=== PATIENT | female | born 1985 | race African-American/Black ===

== ENCOUNTER 2019-10-30 07:10 | Outpatient (CLI) | payer BC ==
[~2019-10-30] VITALS: Ht 170.2 cm; Wt 115.0 kg
[2019-10-30 08:21] LABS: MICROSCOPIC INDICATED
[2019-10-30 08:24] LABS: MEAN CORPUSCULAR HEMOGLOBIN 25.5 pg (27.0-34.8); MEAN CORPUSCULAR HGB CONC 32.1 g/dL (32.4-35.8); MEAN CORPUSCULAR VOLUME 79.3 fL (80-100); MEAN PLATELET VOLUME 8.7 fL (7.4-10.4); PLATELET COUNT 436 x10^3/uL (130-400); RED BLOOD COUNT 4.35 x10^6/uL (3.82-5.3); RED CELL DISTRIBUTION WIDTH 16.4 % (9.6-15.2)
[2019-10-30 08:26] LABS: ALANINE AMINOTRANSFERASE 31 U/L (12-78); ALBUMIN 2.6 g/dL (3.4-5.0); ANION GAP 9 mmol/L (5-15); CALCIUM 8.7 mg/dL (8.5-10.1); CHLORIDE 109 mmol/L (98-107)
[2019-10-30 08:27] LABS: CREATININE,URINE RANDOM 88.3 mg/dL
[2019-10-30 08:28] LABS: ALKALINE PHOSPHATASE 123 U/L (45-117); BILIRUBIN,TOTAL 0.4 mg/dL (0.2-1.0); TOTAL PROTEIN 7.5 g/dL (6.4-8.2)
[2019-10-30 08:42] LABS: BASOPHILS # (AUTO) 0.04 x10^3/uL (0-0.1); BASOPHILS % (AUTO) 0 % (0-1); EOSINOPHILS # (AUTO) 0.07 x10^3/uL (0-0.4); EOSINOPHILS % (AUTO) 1 % (1-7); LYMPHOCYTES # (AUTO) 2.15 x10^3/uL (1-3.4); LYMPHOCYTES % (AUTO) 19 % (22-44); MD SCAN; MONOCYTES # (AUTO) 0.58 x10^3/uL (0.2-0.8); MONOCYTES % (AUTO) 5 % (2-9); NEUTROPHILS # (AUTO) 8.41 x10^3/uL (1.8-6.8); NEUTROPHILS % (AUTO) 75 % (42-75)
== END 2019-10-30 09:02 | disposition home or self-care (01) ==
LOC: LDOP 07:10
PROVIDERS: ATTEND Obstetrics & Gynecology
DX: O36.8930 Maternal care for other specified fetal problems, third trimester, not applicable or unspecified (principal); Z3A.39 39 weeks gestation of pregnancy
CPT/HCPCS: 36415; 59025; 80053; 81001; 82570; 84156; 84550; 85025

== ENCOUNTER 2019-11-05 17:36 | Inpatient (IN) | payer BC ==
[~2019-11-05] VITALS: Ht 170.2 cm; Wt 112.3 kg
[2019-11-05] MEDS ORDERED: OXYTOCIN 30U/ 0.9% NaCL 500ML 500 ML IV PRN (21:16)
[2019-11-05] MEDS ORDERED: OXYTOCIN 30U/ 0.9% NaCL 500ML 500 ML IV ONE (21:16)
[2019-11-05] MEDS ORDERED: D5%-LACTATED RINGERS 1,000 ML IV SCH (21:16)
[2019-11-05] MEDS ORDERED: NEWBORN KIT ONE (21:18)
[2019-11-05] MEDS ORDERED: OXYTOCIN 30U/ 0.9% NaCL 500ML 500 ML ONE (21:18)
[2019-11-05] MEDS ORDERED: MISOPROSTOL 25 MCG TABLET ONE (21:18)
[2019-11-05] MEDS ORDERED: CALCIUM CARBONATE 500 MG TAB.CHEW PO PRN (21:30)
[2019-11-05] MEDS ORDERED: FENTANYL PF 100 MCG/2ML IVPush PRN (21:30)
[2019-11-05] MEDS ORDERED: TERBUTALINE 1 MG/ML, 1ML SQ PRN (21:30)
[2019-11-05] MEDS ORDERED: PENICILLIN GK 5,000,000 UNITS in DEXTROSE 5% 100 ML IVPB ONE (21:30)
[2019-11-05] MEDS ORDERED: FENTANYL PF 100 MCG/2ML IV PRN (21:30)
[2019-11-05] MEDS ORDERED: ONDANSETRON 2MG/ML, 2ML IVPush PRN (21:30)
[2019-11-05] MEDS: LACTATED RINGERS 1,000 ML IV SCH (21:38)
[2019-11-05 21:40] LABS: BASOPHILS # (AUTO) 0.15 x10^3/uL (0-0.1); BASOPHILS % (AUTO) 1 % (0-1); EOSINOPHILS # (AUTO) 0.04 x10^3/uL (0-0.4); EOSINOPHILS % (AUTO) 0 % (1-7); LYMPHOCYTES # (AUTO) 2.34 x10^3/uL (1-3.4); LYMPHOCYTES % (AUTO) 20 % (22-44); MD NO; MEAN CORPUSCULAR HEMOGLOBIN 25.4 pg (27.0-34.8); MEAN CORPUSCULAR HGB CONC 32.6 g/dL (32.4-35.8); MEAN CORPUSCULAR VOLUME 77.8 fL (80-100); MEAN PLATELET VOLUME 8.9 fL (7.4-10.4); MONOCYTES # (AUTO) 0.57 x10^3/uL (0.2-0.8); MONOCYTES % (AUTO) 5 % (2-9); NEUTROPHILS # (AUTO) 8.75 x10^3/uL (1.8-6.8); NEUTROPHILS % (AUTO) 74 % (42-75); PLATELET COUNT 423 x10^3/uL (130-400)
[2019-11-05] MEDS: MISOPROSTOL 25 MCG TABLET VG PRN (21:42)
[2019-11-05 22:38] VITALS: BP 144/71
[2019-11-06] MEDS ORDERED: MISOPROSTOL 25 MCG TABLET ONE (01:44)
[2019-11-06] MEDS: PENICILLIN GK 2,500,000 UNITS in DEXTROSE 5% 100 ML IVPB SCH ×5 (01:45→21:50)
[2019-11-06] MEDS: MISOPROSTOL 25 MCG TABLET VG PRN (01:47)
[2019-11-06] MEDS: LACTATED RINGERS 1,000 ML IV SCH (06:37)
[2019-11-06] MEDS ORDERED: LACTATED RINGERS 1,000 ML IV SCH ×2 (08:19→17:04)
[2019-11-06] MEDS ORDERED: FENTANYL/BUPIV./NS/PF 250 ML EPIDCONT SCH ×2 (08:19→17:04)
[2019-11-06] MEDS ORDERED: EPHEDRINE 50 MG/ML, 1ML IVPush PRN ×3 (08:30→22:30)
[2019-11-06] MEDS ORDERED: LACTATED RINGERS 1,000 ML IVBOLUS PRN ×2 (08:30→17:30)
[2019-11-06] MEDS ORDERED: NALOXONE 0.4 MG/ML, 1ML IVPush PRN ×2 (08:30→17:30)
[2019-11-06] MEDS ORDERED: OXYTOCIN 30U/ 0.9% NaCL 500ML 500 ML ONE (13:45)
[2019-11-06] MEDS ORDERED: FENTANYL PF 100 MCG/2ML ONE (16:43)
[2019-11-06] MEDS ORDERED: BUPIVACAINE 0.25% ONE (17:04)
[2019-11-06] MEDS ORDERED: FENT 2mcg/ml BUPIV 0.125%NS/PF EPIDCONT ONE (17:04)
[2019-11-06] MEDS ORDERED: FENTANYL/BUPIV./NS/PF 250 ML EPIDCONT ONE (17:19)
[2019-11-06] MEDS ORDERED: FENTANYL PF 500 MCG, BUPIVACAINE/PF 0.5%, 30ML 62.5 ML in SODIUM CHLORIDE 0.9% 177.5 ML EPIDCONT SCH (17:30)
[2019-11-06] MEDS ORDERED: OXYcodone 5 MG/5 ML ORAL.SOL UDC PO PRN (22:30)
[2019-11-06] MEDS ORDERED: LABETALOL 5MG/ML, 20ML IV PRN (22:30)
[2019-11-06] MEDS ORDERED: MIDAZOLAM 1 MG/ML, 2ML IV PRN (22:30)
[2019-11-06] MEDS ORDERED: MEPERIDINE/PF 25MG/0.5ML IVPush PRN (22:30)
[2019-11-06] MEDS ORDERED: HYDROmorphone 2 MG/ML, 1ML IVPush PRN (22:30)
[2019-11-06] MEDS ORDERED: METOPROLOL 1 MG/ML, 5ML IV PRN (22:30)
[2019-11-06] MEDS ORDERED: HYDROcodone/APAP 7.5-325MG/15ML UDC PO PRN (22:30)
[2019-11-06] MEDS ORDERED: hydrALAzine 20 MG/ML, 1ML IV PRN (22:30)
[2019-11-06] MEDS ORDERED: ALBUTEROL SULFATE 2.5 MG/3 ML NPPB PRN (22:30)
[2019-11-06] MEDS ORDERED: ONDANSETRON 2MG/ML, 2ML IVPush PRN (22:30)
[2019-11-06] MEDS ORDERED: PROMETHAZINE 25 MG/ML, 1ML IV PRN (22:30)
[2019-11-07] MEDS: LACTATED RINGERS 1,000 ML IV SCH (00:15)
[2019-11-07] MEDS: PENICILLIN GK 2,500,000 UNITS in DEXTROSE 5% 100 ML IVPB SCH (03:48)
[2019-11-07] MEDS ORDERED: OXYTOCIN 30U/ 0.9% NaCL 500ML 500 ML ONE (05:37)
[2019-11-07] MEDS ORDERED: ONDANSETRON 2MG/ML, 2ML ONE (06:30)
[2019-11-07] MEDS ORDERED: LIDOCAINE 1%, 20ML ONE (07:25)
[2019-11-07 08:35] VITALS: BP 118/60
[2019-11-07] MEDS: OXYTOCIN 30U/ 0.9% NaCL 500ML 500 ML IV SCH ×2 (09:14→19:14)
[2019-11-07] MEDS ORDERED: DOCUSATE 100 MG CAPSULE PO PRN (09:30)
[2019-11-07] MEDS ORDERED: SIMETHICONE 80 MG CHEW TAB PO PRN (09:30)
[2019-11-07] MEDS ORDERED: CARBOPROST TROMETHAMINE 250 MCG/ML, 1ML IM PRN (09:30)
[2019-11-07] MEDS ORDERED: MISOPROSTOL 200 MCG TABLET PR PRN (09:30)
[2019-11-07] MEDS ORDERED: IBUPROFEN 600 MG TABLET PO PRN (09:30)
[2019-11-07] MEDS ORDERED: ACETAMINOPHEN 325 MG TABLET PO PRN ×2 (09:30)
[2019-11-07] MEDS ORDERED: METHYLERGONOVINE 0.2 MG/ML IM PRN (09:30)
[2019-11-07] MEDS ORDERED: OXYcodone/APAP 5/325MG TABLET PO PRN ×2 (09:30)
[2019-11-07] MEDS ORDERED: MISOPROSTOL 200 MCG TABLET ONE (11:02)
[2019-11-07 12:29] VITALS: BP 117/73
[2019-11-07 13:47] LABS: MEAN CORPUSCULAR HEMOGLOBIN 24.6 pg (27.0-34.8); MEAN CORPUSCULAR HGB CONC 31.2 g/dL (32.4-35.8); MEAN CORPUSCULAR VOLUME 78.9 fL (80-100); MEAN PLATELET VOLUME 8.9 fL (7.4-10.4); PLATELET COUNT 390 x10^3/uL (130-400); RED BLOOD COUNT 3.85 x10^6/uL (3.82-5.3); RED CELL DISTRIBUTION WIDTH 17.6 % (9.6-15.2)
[2019-11-07 14:00] LABS: BASOPHILS # (AUTO) 0.13 x10^3/uL (0-0.1); BASOPHILS % (AUTO) 1 % (0-1); EOSINOPHILS # (AUTO) 0.01 x10^3/uL (0-0.4); EOSINOPHILS % (AUTO) 0 % (1-7); LYMPHOCYTES # (AUTO) 2.32 x10^3/uL (1-3.4); LYMPHOCYTES % (AUTO) 11 % (22-44); MD SCAN; MONOCYTES # (AUTO) 1.14 x10^3/uL (0.2-0.8); MONOCYTES % (AUTO) 5 % (2-9); NEUTROPHILS # (AUTO) 17.57 x10^3/uL (1.8-6.8); NEUTROPHILS % (AUTO) 83 % (42-75)
[2019-11-07 16:18] VITALS: BP 114/67
[2019-11-07 20:15] VITALS: BP 117/67
[2019-11-07 23:45] VITALS: BP 111/78
[2019-11-08 04:30] VITALS: BP 120/73
[2019-11-08] MEDS: OXYTOCIN 30U/ 0.9% NaCL 500ML 500 ML IV SCH ×2 (05:14→15:14)
[2019-11-08 08:07] VITALS: BP 129/73
[2019-11-08] MEDS ORDERED: PRENATAL VIT/IRON/FA 1 EACH TABLET PO SCH (09:00)
[2019-11-08] MEDS ORDERED: DIPH,PERTUSS(ACELL),TET VAC/PF NC IM-VACC ONE (15:00)
== END 2019-11-08 16:03 | disposition home or self-care (01) | DRG 807 ==
LOC: LDIP 20:46 → 2NW 11-07 08:28
PROVIDERS: ADMIT Obstetrics & Gynecology; ATTEND Obstetrics & Gynecology
PROC: 10E0XZZ Delivery of Products of Conception, External Approach (ICD-10-PCS; principal; 2019-11-07)
PROC: 3E0R3BZ Introduction of Anesthetic Agent into Spinal Canal, Percutaneous Approach (ICD-10-PCS; 2019-11-07)
PROC: 00HU33Z Insertion of Infusion Device into Spinal Canal, Percutaneous Approach (ICD-10-PCS; 2019-11-07)
DX: O13.4 Gestational [pregnancy-induced] hypertension without significant proteinuria, complicating childbirth (principal); Z37.0 Single live birth; O99.824 Streptococcus B carrier state complicating childbirth; O69.1XX0 Labor and delivery complicated by cord around neck, with compression, not applicable or unspecified; Z3A.37 37 weeks gestation of pregnancy
CPT/HCPCS: 36415; J7121; 85025; 86592; 86850; 86900; 90715; G0378; J2405; J2540; J3010; J3490; J2590; J7120